=== PATIENT | female | born 2000 | race Caucasian/White ===

== ENCOUNTER 2022-08-04 09:25 | Emergency (ER) | payer OTHER, SELFPAY ==
[2022-08-04 09:39] VITALS: BP 116/89; PULSE 105; RESP 16; TEMP 36.7; O2SAT 95
--- NOTE | 2022-08-04 09:47 | ED.URI ---
HPI - URI/Sore Throat General Chief Complaint: Upper Respiratory Infection Stated Complaint: SORE/SWOLLEN THROAT/DRAINAGE/NECK PAIN/EARS Time Seen by Provider: 08/04/22 09:40 Source: patient Mode of arrival: ambulatory Limitations: no limitations History of Present Illness HPI Narrative: David is a 22-year-old female patient presenting to the clinic today with complaints of sore throat, ear pain, and neck pain, and swollen lymph nodes. She reports symptoms began last night. States she has had a low-grade temperature of a 100? F. elicited complaint: fever, sore throat and nasal congestion Related Data Home Medications Medication Instructions Recorded Confirmed levonorgestrel-ethinyl estradiol 1 tablet PO DAILY 08/04/22 08/04/22 0.1 mg-20 mcg tablet (Vienva) Allergies Allergy/AdvReac Type Severity Reaction Status Date / Time No Known Allergies Allergy Mild Verified 08/04/22 09:33 Review of Systems Review of Systems: Pertinent positives per HPI. Patient denies any rash, headache, visual changes, dizziness, cough, shortness of breath, chest pain, palpitations, nausea, vomiting, diarrhea, constipation, abdominal pain, or any urinary issues. PMFSH Surgical History Surgical History [place] teeth removed Family History Family History Father Hypertension Heart disease Mother Aj's disease Grandparent Breast cancer Hypertension Anxiety and depression Heart disease Thyroid disorder Other Family history of arthritis Family history of cardiovascular disease Social History Social History Smoking status: Never smoker Alcohol intake: never Substance use: never Living arrangements: with family Comments At the time of my signature, I reviewed and agree with the nursing past medical, surgical, social, and family history. There is no relevant family history pertinent to the patient complaint. Exam Narrative: General: Well-developed, well nourished, in no apparent distress Head: Normocephalic, atraumatic Eyes: Pupils equally round and reactive to light bilaterally, EOM intact, sclera and conjunctive clear, no discharge, lids normal Ears: TMs intact and congested, ear canals clear, no drainage, grossly hearing normal. Nose: Nares patent, clear nasal discharge, no inflammation, no sinus tenderness. Mouth: Oral pharynx without lesions or masses, good dentition, MMM. Oropharynx reveals bilateral tonsillar enlargement Neck: Supple, trachea midline, enlargement of anterior cervical nodes, no thyroid masses or goiter palpable. Cardio: Regular rate and rhythm, s1 and s2 normal, no murmur appreciated. Resp: Clear to auscultation bilaterally, no rhonchi, rales, wheezing or rubs Course Course Emergency Course: Portions of this record may have been created with voice recognition software. Level of Care: Express Care Visit Vital Signs Vital signs: Vital Signs Temperature 36.7 C 08/04/22 09:39 Pulse Rate 105 H 08/04/22 09:39 Respiratory Rate 16 08/04/22 09:39 Blood Pressure 116/89 08/04/22 09:39 Pulse Oximetry 95 08/04/22 09:39 Temperature 36.7 C 08/04/22 09:39 Pulse Rate 105 H 08/04/22 09:39 Respiratory Rate 16 08/04/22 09:39 Blood Pressure 116/89 08/04/22 09:39 Pulse Oximetry 95 08/04/22 09:39 Vital signs reviewed MDM - URI/Sore Throat MDM Narrative Medical decision making narrative: At the time of visit patient is resting comfortably on the exam table. Strep screen was positive in the clinic today. Prescription for and a amoxicillin was sent to the pharmacy and supportive measures were discussed with the patient she voiced understanding of discharge instructions and agrees to treatment plan. Differential Diagnosis Differential diagnosis: Likely upper respirat
== END 2022-08-04 09:55 | disposition home or self-care (01) ==
PROVIDERS: Emergency Provider Nurse Practitioner Family; PCP Internal Medicine
DX: J02.0 Streptococcal pharyngitis (principal)
CPT/HCPCS: 87880; 99213; G0463

== ENCOUNTER 2023-05-29 12:25 | Emergency (ER) | payer BC, SELFPAY ==
--- NOTE | ~2023-05-29 | XR_ITS ---
XR hand LT min 3V DATE: 05/29/2023 13:12 INDICATION: Ulnar wrist and hand pain TECHNIQUE: 3 views of left hand COMPARISON: None FINDINGS: No fracture, dislocation, periosteal reaction or bone destruction, joint space narrowing, e rosive change or chondrocalcinosis. IMPRESSION: Negative Reviewed, dictated and finalized at location L. EMAN IMPRESSION: Negative
--- NOTE | ~2023-05-29 | XR_ITS ---
XR wrist LT min 3V DATE: 05/29/2023 13:13 INDICATION: Ulnar wrist and hand pain TECHNIQUE: 4 views COMPARISON: None FINDINGS: No fracture or dislocation, periosteal reaction or bone destruction, erosive change, joint space narrowing or chondrocalcinosis. IMPRESSION: Negative Reviewed, dictated and finalized at location L. AL TUBE WINDER HELPER IMPRESSION: Negative
--- NOTE | 2023-05-29 12:34 | ED.GENADULT ---
HPI - General Adult General Chief complaint: Extremity Injury, Upper Stated complaint: Fainted;Injured hand;Abdominal pain Time Seen by Provider: 05/29/23 12:49 Source: patient and RN notes reviewed Mode of arrival: ambulatory Limitations: no limitations History of Present Illness HPI narrative: 22-year-old female presents with multiple concerns. Reports she was with her boyfriend at the oral surgeon, when she saw bloody gauze she passed out. Reports she was standing when this happened. Reports prior to passing out she felt really hot. Her blood pressure was taken after she came to 103/67. She reports when she fell she injured her left hand. She reports lateral hand and wrist pain. She also reports a small red bump on her chin in a very small scrape above her right eye. She reports for the past couple of months she has been having intermittent lower abdominal cramping and vaginal spotting. She reports she takes control and has been taking the control pills as prescribed without missing any doses. She reports she is sexually active. She denies dysuria, frequency, urgency. She is in between primary care providers due to recent move. She denies gross vaginal or rectal bleeding. She denies vomiting. She reports slightly increased frequency in stools without diarrhea. She reports she was hoping to get blood work here today. Bruce has a gynecology appointment next week. Patient reports 1 other time in the passed out 5 years ago she passed out for no known reason MD complaint: Fall Related Data Allergies Allergy/AdvReac Type Severity Reaction Status Date / Time No Known Allergies Allergy Mild Verified 05/29/23 12:27 Review of Systems Review of Systems: CONSTITUTIONAL: Denies malaise, chills, sweats, or fever. Reports feeling hot before passing out EYES: Denies visual changes ENT: Denies rhinorrhea, congestionsore throat. CARDIOVASCULAR: Denies chest pain, palpitations, or edema. RESPIRATORY: Denies cough or dyspnea. GASTROINTESTINAL: Reports intermittent lower abdominal cramping. Denies abdominal pain, nausea, vomiting, diarrhea, bloody, or mucous stools. GENITOURINARY: Denies frequency, urgency, dysuria, flank pain or hematuria. SKIN: Denies rash or itching. MUSCULOSKELETAL: Reports left hand and wrist pain NEUROLOGIC: Denies numbness, weakness, or headache. PSYCHIATRIC: Denies anxiety or depression. All systems reviewed & are unremarkable except as noted in HPI and below PMFSH Surgical History Surgical History [place] teeth removed Family History Family History Father Hypertension Heart disease Mother Aj's disease Grandparent Breast cancer Hypertension Anxiety and depression Heart disease Thyroid disorder Other Family history of arthritis Family history of cardiovascular disease Social History Social History Smoking status: Never smoker Alcohol intake: current Alcohol use details: Rarely Substance use: never Lack of Transportation: No Lack of Food: Never True Current Housing: I Have Housing Concerned About Future Housing: No Difficulty Paying Gas/Electric Bills: No Difficulty Paying for Meds: No Currently Unemployed: No Education: Bachelor's Degree Living arrangements: with family Occupation/Education: occupation Gender identity (if verbalized by the patient): Female Sexual Orientation (if Verbalized by the Patient): Straight or Heterosexual Spiritual care concerns: No Comments At time of signature, agree with nursing past medical, surgical, social and family history. There is no relevant family history pertinent to the presenting complaint Exam Narrative: GENERAL: Well-appearing, well-nourished, and in no acute distress. HEAD: Normocephalic, atraumatic. EYES: PERRLA, sc
[2023-05-29 12:39] VITALS: BP 131/67; PULSE 92; RESP 16; TEMP 37.3; O2SAT 100
[2023-05-29 12:46] LABS: Glucose Point of Care 99 mg/dl (65-105)
== END 2023-05-29 13:46 | disposition home or self-care (01) ==
PROVIDERS: Emergency Provider Nurse Practitioner
DX: S63.502A Unspecified sprain of left wrist, initial encounter (principal); S66.912A Strain of unspecified muscle, fascia and tendon at wrist and hand level, left hand, initial encounter; W19.XXXA Unspecified fall, initial encounter
CPT/HCPCS: 73110; 73130; 81003; 81025; 82948; 99213; G0463

== ENCOUNTER 2024-11-18 07:51 | Outpatient (CLI) | payer BC, SELFPAY ==
--- NOTE | ~2024-11-18 | US_ITS ---
Pelvic ultrasound. Clinical History: Excessive and frequent menstruation Technique: Realtime transabdominal and transvaginal scanning of the pelvis was performed. Color flow Doppler and Doppler spectral analysis were performed. Findings: The uterus is anteverted. The endometrial stripe has a thickness of 5 mm. No focal mass is identified. The right ovary measures 3.3 x 2.3 x 2.5 cm. No significant right ovarian or adnexal mass is seen. The left ovary measures 2.9 x 3.0 x 2.4 cm. No significant left ovarian or adnexal mass is seen. There is no evidence of free fluid in the cul de sac. Impression: Unremarkable pelvic ultrasound. Reviewed, dictated and finalized at location . Impression: Unremarkable pelvic ultrasound.
--- OUTSIDE RECORDS SUMMARY | 2024-11-18 07:56 | XMS_ITS | Clinical Summary ---
Author Organization [facility] Address [address] [place] [address] Care Team Providers Care Skid Worker Name Role Phone Donna Lopez MD Primary Care Provider [phone] Source Comments [facility],non-owned Affiliates and Associated Physician Practices is amultiple site organization consisting of ambulatory clinics and hospital sitesin [place], [place] and [place]. This disclosure is being madepursuant to the Care Everywhere program and may not contain all information available regarding this patient. Last updated 18.[facility] Allergies No known active allergies Medications * Be aware that medications may not be up to date on this document. Alwaysverify current medications with the patient. topiramate (TOPAMAX) 25 MG tablet Take 25 mg by mouth once daily. Active Multiple Vitamin (MULTI VITAMIN DAILY PO) Take 1 Cap by mouth. Active naproxen (NAPROSYN) 500 MG tabletIndicatio ns:Vascular Headache Take 1 Tab by mouth 2 times daily as needed for Pain Reasons: Vascular Headache 60 Tab 1 05/11/2016 Active nortriptyline (PAMELOR) 10 MG capsule TAKE 2 CAPSULES BY MOUTH ONCE DAILY 60 Cap 2 01/05/2017 Active Active Problems Problem Noted Date Diagnosed Date Migraine with aura and witho ut status migrainosus, not intractable Social History Tobacco Use Types Packs/Day Years Used Date Smoking Tobacco: Never Alcohol Use Standard Drinks/Week Comments Not Asked 0 (1 standard drink = 0.6 oz pur e alcohol) Comments Unknown Sex and Gender Information Value Date Recorded Sex Assigned at Not on file 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 Gender Identity Not on file Sexual Orientation Not on file Last Filed Vital Signs Vital Sign Reading Time Taken Comments Blood Pressure 110/64 10/26/2015 3:17 PM CDT Pulse - - Temperature - - Respiratory Rate - - Oxygen Saturation - - Inhaled Oxygen Concentration - - Weight 65.4 kg (144 lb 2.9 oz) 10/26/2015 3:17 P M CDT Height 167.4 cm (5' 5.91) 10/26/2015 3:17 PM CD T Body Mass Index 23.34 10/26/2015 3:17 PM CDT Plan of Treatment Health Maintenance Due Date Last Done Comments HIV SCREENING 2015 HPV VACCINE (1 - 3-dose series) 2015 CHLAMYDIA/GONORRHEA SCREENING 2016 HEPATITIS C SCREENING 06/18/2018 DTAP/TDAP/TD VACCINES (1 - Tdap) 2019 HEPATITIS B VACCINE (1 of 3 - 19+ 3-dose series) 2019 COVID-19 VACCINE ( - 2023-2 5 season) 2024 DEPRESSION SCREENING 05/21/2024 INFLUENZA VACCINE (Season Ended) 2025 ZOSTER VACCINE (1 of 2) 2050 HIB VACCINE Aged Out No longer eligi ble based on patient's age to complete this topic MENINGOCOCCAL (Group B) VACC INE SHARED DECISION-MAKING Aged Out No longer eligibl e based on patient's age to complete this topic MENINGOCOCCAL GROUPS A/C/Y/W VACCINE Aged Out No longer eligible b ased on patient's age to complete this topic PNEUMOCOCCAL VACCINE Aged Out No long er eligible based on patient's age to complete this topic Insurance [employer] Care Teams Skid Worker Relationship Specialty Start Date End Date Donna Lopez MD [facility] [address] [place] [address] PCP - General Pediatrics 07/19/16
== END 2024-11-18 07:52 | disposition home or self-care (01) ==
LOC: CHSIMG 07:53
PROVIDERS: PCP Nurse Practitioner Family; Visit Provider Nurse Practitioner Obstetrics & Gynecology
DX: N92.1 Excessive and frequent menstruation with irregular cycle (principal)
CPT/HCPCS: 76830; 76856

== ENCOUNTER 2024-12-14 10:45 | Emergency (ER) | payer BC, SELFPAY ==
--- NOTE | ~2024-12-14 | CT_ITS ---
EXAMINATION: CT abdomen pelvis w con DATE: 12/14/2024 12:54 INDICATION: Right upper quadrant, mid abdominal pulsatile pain TECHNIQUE: Computed tomography (CT) of the abdomen and pelvis was performed with 100 mL Omnipaque-350 intravenous contrast. Automated exposure control and iterative reconstruction technique were employe d. The dose-length product was 544.17 mGy-cm. COMPARISON: None. FINDINGS: Lower thorax: Unremarkable Liver: Normal. Biliary/Gallbladder: Gallbladder is normal. No bile duct dilation. Pancreas: No mass or duct dilation. Spleen: Normal. Adrenals:No mass. Kidneys: No suspicious mass, obstructing stone, or hydronephrosis. GI tract: No small or large bowel dilation. Normal appendix. Mesentery/Peritoneum: No ascites, mass, or free air. Retroperitoneum: No mass. Pelvis: Pelvic organs are within normal limits. Soft Tissues: Soft tissues and body wall unremarkable. Bones: No acute osseous finding. IMPRESSION: No acute abdominopelvic process detected. Reviewed, dictated and finalized at location K.
--- OUTSIDE RECORDS SUMMARY | 2024-12-14 10:47 | XMS_ITS | Clinical Summary ---
Author Organization [facility] Address [address] [place] [address] Care Team Providers Care Ccnp Name Role Phone Donna Lopez MD Primary Care Provider [phone] Source Comments [facility],non-owned Affiliates and Associated Physician Practices is amultiple site organization consisting of ambulatory clinics and hospital sitesin [place], [place], [place] and [place]. This disclosure is being madepursuant to the Care Everywhere program and may not contain all information available regarding this patient. 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 [address] [place] [address] PCP - General Pediatrics 07/19/16
[2024-12-14 11:15] VITALS: BP 148/92; PULSE 99; RESP 18; TEMP 37.1; O2SAT 100
--- OUTSIDE RECORDS SUMMARY | 2024-12-14 11:20 | XMS_ITS | Clinical Summary ---
Author Organization [facility] Address [address] [place] [address] Care Team Providers Care Tie Sawyer Name Role Phone Donna Lopez MD Primary Care Provider [phone] Source Comments [facility],non-owned Affiliates and Associated Physician Practices is amultiple site organization consisting of ambulatory clinics and hospital sitesin [place], [place], [place] and [place]. This disclosure is being madepursuant to the Care Everywhere program and may not contain all information available regarding this patient. Last updated 18.[facility] Allergies No known active allergies Medications * [...] on file Legal Sex Female 5:43 AM RN OSTOMY Gender Identity Not on file Sexual Orientation [...] complete this topic Insurance [employer] Care Teams Tie Sawyer Relationship Specialty Start Date End Date Donna Lopez MD [facility] [address] [place] [address] PCP - General Pediatrics 07/19/16
--- NOTE | 2024-12-14 11:51 | ED_ITS ---
HPI - General Adult General Chief complaint: Abdominal Pain Stated complaint: abdominal pain Time Seen by Provider: 12/14/24 11:13 History of Present Illness HPI narrative: 24-year-old female present to the emergency department for evaluation for multiple weeks of increased abdominal bloating, nausea, soft stools, right upper quadrant abdominal pain and describes a midline pulsatile pain. Related Data Allergies Allergy/AdvReac Type Severity Reaction Status Date / Time No Known Allergies Allergy Mild Verified 11/13/24 07:58 Review of Systems 2 Review of Systems: All systems reviewed & are unremarkable except as noted in HPI and below PMFSH Surgical History Surgical History [place] teeth removed Family History Family History (Updated 11/13/24 @ 08:00 by Michael Jackson CMA) Father Hypertension Heart disease Mother Aj's disease Fibroids Grandparent Breast cancer Hypertension Anxiety and depression Heart disease Thyroid disorder Other Family history of arthritis Family history of cardiovascular disease Social History Social History Smoking status: Never smoker Alcohol intake: current Alcohol use details: Rarely Substance use: never Lack of Transportation: No Lack of Food: Never True Current Housing: I Have Housing Concerned About Future Housing: No Difficulty Paying Gas/Electric Bills: No Difficulty Paying for Meds: No Currently Unemployed: No Education: Bachelor's Degree Living arrangements: with family Occupation/Education: occupation Gender identity (if verbalized by the patient): Female Sexual Orientation (if Verbalized by the Patient): Straight or Heterosexual Spiritual care concerns: No Exam 2 Narrative: APPEARANCE: Well appearing, no pain, no distress, well-nourished. HEAD: normocephalic, atraumatic. EYES: PERRLA/EOMI, conjunctivae clear. NOSE: Normal no drainage EARS:TMS clear with good light reflex. THROAT: Pharynx clear, no exudate. NECK: Supple. No adenopathy, no masses. RESPIRATORY: Airway patent, respirations nonlabored. Clear to auscultation bilaterally, no rales, rhonchi, wheezing. CARDIOVASCULAR: Regular rate and rhythm without murmurs rubs or gallops. ABDOMINAL: Right CVA tenderness to palpation, right upper quadrant tenderness to palpation, palpable aorta MUSCULOSKELETAL: Moves all extremities. Strength/ROM intact, No edema, No calf tenderness. NEURO: Alert. Cranial nerves II through XII intact. Good gait. Good coordination SKIN: Warm, dry. Normal Color Course Vital Signs Vital signs: Vital Signs Temperature 98.7 F 12/14/24 11:15 Pulse Rate 99 12/14/24 11:15 Respiratory Rate 18 12/14/24 11:15 Blood Pressure 148/92 H 12/14/24 11:15 Pulse Oximetry 100 12/14/24 11:15 Temperature 98.7 F 12/14/24 11:15 Pulse Rate 99 12/14/24 11:15 Respiratory Rate 18 12/14/24 11:15 Blood Pressure 148/92 H 12/14/24 11:15 Pulse Oximetry 100 12/14/24 11:15 Medical Decision Making MDM Narrative Medical decision making narrative: [age] old female presents to the emergency department for evaluation right upper quadrant abdominal pain and pulsatile pain in her abdomen. Patient is currently afebrile with no leukocytosis hemoglobin 11.8. INR 1.0. No acute abnormalities on the CMP T bili is normal mild elevation in ALT and AST with no elevation in lipase or alk-phos. UA was negative for infection was positive for ketones mild hematuria on the UA. CT abdomen pelvis shows no acute abdominal process. Patient was encouraged of close follow-up with her primary care physician. All questions concerns were addressed. Differential Diagnosis Differential Diagnosis: Colitis, diverticulitis, cholecystitis, aortic injury, gastritis Vital Signs Vital Signs: Vital Signs Temperature 98.7 F 12/14/24 11:15 Pulse Rate 99 12/14/24 11:15 Respiratory Rate 18 12/14/24 11:15 Blood Pressure 148/92 H 12/14/24 11:15 Pulse Oximetry 100 12/14/24 11:15 Temperature 98.7 F 12/14/24 11:15 Pulse Rate 99 12/14/24 11:15 Respiratory Rate 18 12/14/24 11:15 Blood Pressure 148/92 H 12/14/24 11:15 Pulse Oximetry 100 12/14/24 11:15 Lab Data Lab results reviewed: Yes I reviewed the patient's lab results. 12/14/24 11:59 12/14/24 11:59 Labs: Lab Results 07/27/25 07/27/25 07/27/25 Range/Units 11:20 11:59 12:01 WBC 4.7 (4.5-10.0) K/mm3 RBC 4.09 L (4.2-5.4) M/mm3 Hgb 11.8 L (12.0-15.0) g/dL Hct 36.2 L (37.0-47.0) % MCV 88.5 (80-100) fl MCH 28.9 (26-34) pg MCHC 32.6 (32-36) g/dl RDW 12.5 (11.5-14.5) % Plt Count 270 (150-375) k/mm3 MPV 8.7 (7.4-10.4) fl Immature Gran % (Auto) 0.2 (0-0.5) % Neut % (Auto) 54.4 (45.5-73.1) % Lymph % (Auto) 30.3 (18.3-44.2) % [place] % (Auto) 11.5 H (2.6-8.5) % Eos % (Auto) 3.4 (0-4.4) % Baso % (Auto) 0.2 (0.2-1.2) % Lymph # (Auto) 1.42 (0.9-3.2) K/mm3 [place] # (Auto) 0.5 (0.1-0.6) K/mm3 Eos # (Auto) 0.2 (0-0.3) K/mm3 Baso # (Auto) 0.0 (0.0-0.1) K/mm3 Abs Immat Gran (auto) 0.01 (0.00-0.031) K/mm3 Absolute Neuts (auto) 2.6 (1.3-6.7) K/mm3 Absolute Nucleated RBC 0.000 (0.0-0.012) K/mm3 Nucleated RBC % 0.0 (0.0-0.2) % PT 13.6 (11.1-14.7) Seconds INR 1.0 APTT 29.3 (22.3-36.8) Seconds Sodium 140 (137-145) mmol/L Potassium 4.0 (3.4-5.0) mmol/L Chloride 105 (98-107) mmol/L Carbon Dioxide 26 (22-30) mmol/L Anion Gap 9 (4-12) mmol/L BUN 10 (7-17) mg/dL Creatinine 0.73 (0.7-1.0) mg/dL Estim Creat Clear Calc 117 ml/min Estimated GFR > 60 (59 - ) Glucose 97 (65-110) mg/dL Lactic Acid 1.3 (0.7-2.0) mmol/L Calcium 9.5 (8.4-10.2) mg/dL Total Bilirubin 0.4 (0.2-1.3) mg/dL AST 47 H (14-36) U/L ALT 36 H (6-35) U/L Alkaline Phosphatase 78 (38-126) U/L Total Protein 7.0 (6.3-8.2) g/dL Albumin 4.1 (3.5-5.1) g/dL Lipase 45 (23-300) U/L Urine Color Yellow (Yellow) Urine Appearance Clear (Clear) Urine pH 6.0 (5.0-9.0) Ur Specific [place] 1.028 (1.001-1.035) Urine Protein Trace (Negative) mg/dL Urine Glucose (UA) Negative (Negative) mg/dL Urine Ketones Trace H (Negative) mg/dL Ur Blood (Man) Trace (Negative) Urine Nitrate Negative (Negative) Urine Bilirubin Negative (Negative) Urine Urobilinogen 1.0 (<2.0) mg/dL Leukocyte Esterase Rfl Trace H (Negative) VALE/UL Urine RBC 3-5 H (0-2) /hpf Urine WBC 0-5 (0-3) /hpf Ur Squamous Epith Cells Occasional (Few) /hpf Urine Bacteria None seen /hpf Urine Casts 0-2 POC Urine HCG, Qual Negative (Negative) Imaging Data Radiologist's impression: Impressions Abdomen/Pelvis CT 12/14/24 13:12 IMPRESSION: No acute abdominopelvic process detected. Discharge Plan Discharge Clinical Impression: Abdominal pain Patient Disposition: Home Condition: Stable Instructions: Antibiotic Form, Abdominal Pain (ED) Additional Instructions: Labs and CT showed no significant acute abnormalities. Have close follow-up with your primary care physician. If you have any worsening symptoms then please call or return to the emergency department. Patient Language: Nepali Prescriptions: No Action levonorgestrel-ethinyl estrad [Vienva] 0.1-20 mg-mcg tablet See Rx Instructions .ROUTE .COMPLEX Qty: 84 4RF Rx Instructions: Use as directed. One tablet daily. Follow-up/Referrals: Zeynep Darby APRN [Primary Care Provider] -
[2024-12-14 11:56] LABS: BEDSIDEPREGUCG Negative (Negative)
[2024-12-14 12:08] LABS: Hematocrit 36.2 % (37.0-47.0); Hemoglobin 11.8 g/dL (12.0-15.0); Immature Granulocyte Percent A 0.2 % (0-0.5); Lymphocytes Absolute Auto 1.42 K/mm3 (0.9-3.2); Mean Corpuscular HGB Conc 32.6 g/dl (32-36); Mean Corpuscular Hemoglobin 28.9 pg (26-34); Mean Corpuscular Volume 88.5 fl (80-100); Nucleated Red Blood Cells Absolute Auto 0.000 K/mm3 (0.0-0.012); Nucleated Red Blood Cells Perc 0.0 % (0.0-0.2); Platelet Count Result 270 k/mm3 (150-375); Red Blood Count 4.09 M/mm3 (4.2-5.4); White Blood Count 4.7 K/mm3 (4.5-10.0)
[2024-12-14 12:14] LABS: Add Urine Microscopic? YES; Appearance Urine Clear (Clear); Glucose Urine UA Negative (Negative); Leukocyte Esterase Ur Trace LEU/UL (Negative); Nitrate Urine Negative (Negative); Non Pathogenic Casts 0-2; Specific Grav Ur 1.028 (1.001-1.035)
[2024-12-14] MEDS: ONDANSETRON INJ 4 MG/2 ML VIAL IV PUSH (12:18)
[2024-12-14] MEDS: LACTATED RINGERS 1,000 ML 999 ML IV CONT (12:18)
[2024-12-14] MEDS: HYDROmorphone HCL INJ (*CRX) 2 MG/ML VIAL 0.5 MG IV PUSH (12:18)
[2024-12-14 12:19] LABS: INR 1.0; Prothrombin Time 13.6 Seconds (11.1-14.7)
[2024-12-14 12:20] LABS: Partial Thromboplastin Time 29.3 Seconds (22.3-36.8)
[2024-12-14 12:28] LABS: Alanine Aminotransferase 36 U/L (6-35); Albumin Level 4.1 g/dL (3.5-5.1); Alkaline Phosphatase 78 U/L (38-126); Anion Gap 9 mmol/L (4-12); Aspartate Amino Transferase 47 U/L (14-36); Bilirubin,Total 0.4 mg/dL (0.2-1.3); Blood Urea Nitrogen 10 mg/dL (7-17); Calcium 9.5 mg/dL (8.4-10.2); Carbon Dioxide 26 mmol/L (22-30); Chloride 105 mmol/L (98-107); Estimated CRCL calculation 117 ml/min; Estimated Glomerular Filt Rate > 60; Glucose 97 mg/dL (65-110); Lipase 45 U/L (23-300); Potassium 4.0 mmol/L (3.4-5.0); Sodium 140 mmol/L (137-145); Total Protein 7.0 g/dL (6.3-8.2)
== END 2024-12-14 14:12 | disposition home or self-care (01) ==
PROVIDERS: Emergency Provider Emergency Medicine; PCP Nurse Practitioner Family
DX: R10.11 Right upper quadrant pain (principal)
CPT/HCPCS: 36415; 74177; 80053; 81001; 81025; 83605; 83690; 85025; 85610; 85730; 96361; 96374; 96375; 99284; J1171; J2405; J7120; Q9967

== ENCOUNTER 2024-12-17 08:28 | Outpatient (CLI) | payer BC, SELFPAY ==
--- NOTE | ~2024-12-17 | XR_ITS ---
XR abdomen/kub 1V 12/17/2024 08:52 INDICATION: Constipation TECHNIQUE: KUB COMPARISON: None FINDINGS: Bowel gas pattern is normal. There is no evidence of free air, mass, organomegaly, ascites or obstruction. No abnormal calculi are seen. The bones appear intact. IMPRESSION: 1: No acute abdominal abnormality identified. Reviewed, dictated and finalized at location B.
--- OUTSIDE RECORDS SUMMARY | 2024-12-17 08:43 | XMS_ITS | Clinical Summary ---
Author Organization [facility] Address [address] [place] [address] Care Team Providers Care Automobile Bumper Straightener Name Role Phone Donna Lopez MD Primary Care Provider [phone] Source Comments [facility],non-owned Affiliates and Associated Physician Practices is amultiple site organization consisting of ambulatory clinics and hospital sitesin [place], [place], [place] and [place]. This disclosure is being madepursuant to the Care Everywhere program and may not contain all information available regarding this patient. 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 [place] [address] PCP - General Pediatrics 07/19/16
== END 2024-12-17 08:29 | disposition home or self-care (01) ==
PROVIDERS: PCP Nurse Practitioner Family; Visit Provider Nurse Practitioner Family
DX: K59.00 Constipation, unspecified (principal); R10.9 Unspecified abdominal pain
CPT/HCPCS: 74018

== ENCOUNTER 2025-01-01 08:37 | Outpatient (CLI) | payer BC, SELFPAY ==
--- NOTE | ~2025-01-01 | US_ITS ---
US abdomen complete EXAMINATION: US Abdomen Complete INDICATION: Abnormal lab values. Abdomen pain. PROCEDURE: Realtime High Resolution abdomen ultrasound. COMPARISON: No prior studies for comparison FINDINGS: Gallbladder within normal limits. No gallstones, pericholecystic fluid, gallbladder wall t hickening or biliary dilatation. Common bile duct measures 4 mm. Liver echotexture is mildly increased consistent with fatty infiltration.. Pancreas within normal li mits. Pancreatic tail is obscured by bowel gas. Spleen is unremarkeable. Renal echotexture is withi n normal limits bilaterally without hydronephrosis, contour deforming mass or renal stone. Right kidn ey measures 10.6 cm. Left kidney measures 10 cm. Visualized aspects of the aorta and IVC are within normal limits. Portal vein is patent. No sonograph ic Sorensen's sign indicated by the technologist. IMPRESSION: 1: Fatty infiltration of the liver. Reviewed, dictated and finalized at location A.
== END 2025-01-01 08:38 | disposition home or self-care (01) ==
LOC: GOSHIMG 08:37
PROVIDERS: PCP Nurse Practitioner Family; Visit Provider Nurse Practitioner Family
DX: R74.8 Abnormal levels of other serum enzymes (principal); R10.9 Unspecified abdominal pain; K76.0 Fatty (change of) liver, not elsewhere classified
CPT/HCPCS: 76700

== ENCOUNTER 2025-01-16 07:38 | Outpatient (CLI) | payer BC, SELFPAY ==
--- NOTE | ~2025-01-16 | NM_ITS ---
EXAMINATION: NM_HEPATWP_NM DATE: 01/16/2025 14:22 CDT INDICATION: Abdominal discomfort COMPARISON: Ultrasound dated 01/01/2025. TECHNIQUE: 5 mCi Tc-99m mebrofenin (Choletec) was administered intravenously. Scintigraphic images of the abdomen were obtained for one hour. At the 1 hour time point, [3 mcg sincalide (Kinevac) was administered by slow intravenous infusion, and imaging was continued for 30 minutes. Gallbladder ejection fraction was calculated by the technologist.] FINDINGS: There is normal clearance of radiotracer from the blood pool. There is homogeneous tracer uptake by the liver. Activity progresses to the gallbladder and bowel. Gallbladder ejection fraction measures 69% (normal 10-90%, but most patient with gallbladder dysfunction have GBEF < 35%).] IMPRESSION: 1. Unremarkable hepatobiliary scan Reviewed, dictated and finalized at location O.
--- OUTSIDE RECORDS SUMMARY | 2025-01-16 07:49 | XMS_ITS | Clinical Summary ---
Author Organization [facility] Address [address] [place] [address] Care Team Providers Care Crown Presser Name Role Phone Donna Lopez MD Primary Care Provider [phone] Source Comments [facility],non-owned Affiliates and Associated Physician Practices is amultiple site organization consisting of ambulatory clinics and hospital sitesin [place], [place], [place] and [place]. This disclosure is being madepursuant to the Care Everywhere program and may not contain all information available regarding this patient. Last updated 18.[facility] Allergies No known active allergies Medications * [...] on file Legal Sex Female 5:43 AM [employer] Gender Identity Not on file Sexual [...] complete this topic Insurance [employer] Care Teams Crown Presser Relationship Specialty Start Date End Date Donna Lopez MD Formerly named [facility] [address] [place] [address] PCP - General Pediatrics 07/19/16
== END 2025-01-16 07:39 | disposition home or self-care (01) ==
PROVIDERS: PCP Nurse Practitioner Family; Visit Provider Nurse Practitioner Family
DX: R10.9 Unspecified abdominal pain (principal); R94.5 Abnormal results of liver function studies
CPT/HCPCS: 78227; A9537; J2805

== ENCOUNTER 2025-03-02 04:00 | Day surgery (SDC) | payer BC, SELFPAY ==
[2025-02-19 15:18] VITALS: BMI 26.9
[2025-03-02 09:20] VITALS: BP 118/78; PULSE 75; RESP 16; TEMP 36.6; O2SAT 100; BMI 27.3
[2025-03-02 09:33] LABS: BEDSIDEPREGUCG Negative (Negative)
[2025-03-02] MEDS: LACTATED RINGERS 1,000 ML 150 ML IV CONT (09:44)
--- NOTE | 2025-03-02 10:07 | P.PNAN_ITS ---
Anes - Initial Pre Proc Eval Procedure: Operation Date: 03/02/25 10:45 Proposed Procedures p Esophagogastroduodenoscopy EGD - Trung Wu MD Date/Time: 03/02/25 10:07 Surgeon: Trung Wu MD Pre Op Diagnosis: Right upper quadrant pain Patient Data Age: 24 Gender: F Height: 1.7 m Weight: 79.2 kg Last Vital Signs Temp 36.6 C 03/02/25 09:20 Pulse 75 03/02/25 09:20 Resp 16 03/02/25 09:20 BP 118/78 03/02/25 09:20 Pulse Ox 100 03/02/25 09:20 O2 Del Method Room Air 03/02/25 09:20 Allergies Allergy/AdvReac Type Severity Reaction Status Date / Time No Known Allergies Allergy Mild Verified 03/02/25 09:27 Home Medications ?Medication ?Instructions ?Recorded ?Confirmed ?Type No Home Medications 02/12/25 02/19/25 H istory Laboratory Tests 03/02/25 09:32 POC Urine HCG, Qual Negative (Negative) Patient hx anesthesia problems: none Family hx anesthesia problems: none Results Review: All pre-operative results and documents have been reviewed as part of the pre- operative evaluation. COUNTS INCLUDE 234 BEDS AT THE [facility] Past Medical History Medical History Bloating RUQ pain Surgical History Surgical History [place] teeth removed Family History Family History Father Hypertension Heart disease Mother Aj's disease Fibroids Grandparent Breast cancer Hypertension Anxiety and depression Heart disease Thyroid disorder Other Family history of arthritis Family history of cardiovascular disease Social History Social History Smoking status: Never smoker Alcohol intake: current Alcohol use details: Social Substance use: never Substance use type: does not use Lack of Transportation: No Lack of Food: Never True Current Housing: I Have Housing Concerned About Future Housing: No Difficulty Paying Gas/Electric Bills: No Difficulty Paying for Meds: No Currently Unemployed: No Education: Bachelor's Degree Living arrangements: with family Occupation/Education: occupation Gender identity (if verbalized by the patient): Female Sexual Orientation (if Verbalized by the Patient): Straight or Heterosexual Spiritual care concerns: No Anes - Eval Final PreProcedure Day of Procedure 03/02/25 10:07 Patient weight: overweight Heart: regular rate and rhythm Lungs: clear to auscultation Airway: Mallampati scale class II Neurological: alert and oriented Last oral intake: >/= 8 hours ASA classification: II Emergent: no Anesthetic plan: proceed Anesthesia type and monitoring: general GIVS and standard monitoring Results Review: All pre-operative results and documents have been reviewed as part of the pre- operative evaluation. Informed Consent: The patient's anesthetic plan and its attendant risks and benefits were discussed with the patient/family/POA. Questions were solicited and answers provided to the satisfaction of the patient/family/POA.
--- NOTE | 2025-03-02 10:09 | WPDHPUPDATE1 ---
History and Physical Update Update Date/Time: 03/02/25 10:09 History and Physical has been reviewed, including an updated exam of the patient. There are NO changes in the patient's condition. Risks, benefits, and alternatives have been discussed and questions answered. Patient agrees to proceed with procedure.
--- NOTE | 2025-03-02 10:15 | S_PTH ---
PATIENT: David Wei LOC: [facility]#:[id number] AGE/SX: 24/F ROOM: RE03/02/[address]: Trung Wu MD : 2000 BED: DIS: 03/02/2025 SPEC #: [id number] RECD: 03/02/25 10:58 STATUS: KAYLA REOleksandr #: [id number] KASSIDY: 03/02/25 10:[address]: Trung Wu DEPT: [facility] Surgical RECD BY: Yasmin Gleason ENTERED: 03/02/25 10:59 SP TYPE: Surgical OTHR DR: Zeynep Darby APRN Tissues: A - Small Bowel Bx B - Gastric Biopsy Procedures: Hematoxylin and Eosin Stain Gross and Microscopic Level 4
[2025-03-02 10:17] VITALS: BP 92/52; PULSE 70; RESP 16; O2SAT 98
[2025-03-02 10:27] VITALS: BP 95/52; PULSE 68; RESP 16; O2SAT 98
[2025-03-02 10:33] VITALS: BP 97/61; PULSE 66; RESP 16; O2SAT 97
--- NOTE | 2025-03-02 10:46 | SUR.PREOP ---
0930- Pt passed out during initiation of IV for approx. 10-15 seconds. Laid flat, cool rag applied to forehead. Side rails up.
== END 2025-03-02 10:44 | disposition home or self-care (01) ==
PROVIDERS: Anesthesiology; PCP Nurse Practitioner Family; Referring Provider Nurse Practitioner Family; Visit Provider Internal Medicine Gastroenterology
PROC: 0DJ08ZZ Inspection of Upper Intestinal Tract, Via Natural or Artificial Opening Endoscopic (ICD-10-PCS; CPT 43239; principal; 2025-03-02 10:45)
DX: K76.0 Fatty (change of) liver, not elsewhere classified (principal); R74.8 Abnormal levels of other serum enzymes; Z98.890 Other specified postprocedural states; Z80.3 Family history of malignant neoplasm of breast; Z82.49 Family history of ischemic heart disease and other diseases of the circulatory system
CPT/HCPCS: 43239; 88305; J2704; J7120